=== PATIENT | male | born 1995 | race Caucasian/White ===

== ENCOUNTER 2017-03-17 10:38 | Day surgery (SDC) | payer OTHER ==
[2017-03-15 09:55] VITALS: BP 124/79
[~2017-03-17] VITALS: Ht 177.8 cm; Wt 78.0 kg
[~2017-03-17 10:38] MED LIST: CEFAZOLIN 1,000 MG ONE; DEXAMETHASONE 4 MG/ML, 1ML ONE; FENTANYL PF 250 MCG/5ML ONE; HYDROmorphone 1 MG/ML, 1ML ONE; KETOROLAC 30 MG/1 ML ONE; LIDOCAINE 0.5%-EPI 1:200K, 50ML ONE; LIDOCAINE/PF 1%-EPI 1:200K, 30ML ONE; MIDAZOLAM 1 MG/ML, 2ML ONE; MINO100T2 PO; ONDANSETRON 2MG/ML, 2ML ONE; PROPOFOL 10 MG/ML, 20ML ONE; ROPIvacaine/PF 0.5%, 30 ML ONE
[2017-03-17] MEDS ORDERED: LIDOCAINE 1%, 2ML ONE (10:59)
[2017-03-17] MEDS ORDERED: ACETAMINOPHEN 325 MG TABLET PO PRN (11:00)
[2017-03-17] MEDS ORDERED: MEPERIDINE/PF 25MG/0.5ML IVPush PRN (11:00)
[2017-03-17] MEDS ORDERED: OXYcodone 5 MG/5 ML ORAL.SOL UDC PO PRN (11:00)
[2017-03-17] MEDS ORDERED: MIDAZOLAM 1 MG/ML, 2ML IV PRN (11:00)
[2017-03-17] MEDS ORDERED: HYDROcodone/APAP 7.5-325MG/15ML UDC PO PRN (11:00)
[2017-03-17] MEDS ORDERED: HYDROmorphone 1 MG/ML, 1ML IV PRN (11:00)
[2017-03-17] MEDS ORDERED: ONDANSETRON 2MG/ML, 2ML IVPush PRN (11:00)
[2017-03-17] MEDS ORDERED: PROMETHAZINE 25 MG/ML, 1ML IV PRN (11:00)
[2017-03-17] MEDS ORDERED: LACTATED RINGERS 1,000 ML IV SCH (11:02)
[2017-03-17] MEDS ORDERED: LIDOCAINE 1%, 2ML SQ PRN (11:30)
[2017-03-17] MEDS ORDERED: HYDROcodone/APAP 7.5-325MG/15ML UDC ONE (13:06)
[2017-03-17] MEDS ORDERED: FENTANYL PF 100 MCG/2ML ONE (13:06)
[2017-03-17] MEDS: FENTANYL PF 100 MCG/2ML IV PRN ×2 (13:13→13:27)
[2017-03-17] MEDS ORDERED: HYDROmorphone 1 MG/ML, 1ML ONE (13:46)
[2017-03-17] MEDS ORDERED: PROMETHAZINE 25MG TABLET PO PRN (17:30)
== END 2017-03-17 17:50 | disposition home or self-care (01) ==
LOC: OUT 10:38
PROVIDERS: ATTEND Orthopaedic Surgery
DX: S83.512A Sprain of anterior cruciate ligament of left knee, initial encounter (principal); S83.282A Other tear of lateral meniscus, current injury, left knee, initial encounter; X58.XXXA Exposure to other specified factors, initial encounter; Y93.9 Activity, unspecified; Y92.9 Unspecified place or not applicable; Y99.9 Unspecified external cause status
CPT/HCPCS: 29881; 29888; C1713; C1762; J0690; J1100; J1170; J1885; J2250; J2405; J2704; J2795; J3010; J3490; J7120; Q0169